=== PATIENT | female | born 1980 | race African-American/Black ===

== ENCOUNTER 2016-11-16 11:12 | Emergency (ER) | payer SELFPAY ==
--- NOTE | 2016-11-16 11:52 | ER Document Report ---
ED Medical Screen (RME) - General Chief Complaint: Cough Stated Complaint: FEVER,COUGH Notes: Patient complains of fever and cough since Saturday, think she has pneumonia. History of pneumonia in 1996. Does not know how high fever was. Feels nauseous , vomited twice yesterday and once today. Denies dysuria. I have greeted and performed a rapid initial assessment of this patient. A comprehensive ED assessment and evaluation of the patient, analysis of test results and completion of the medical decision making process will be conducted by additional ED providers. TRAVEL OUTSIDE OF THE [place] IN LAST 30 DAYS: No Past Medical History Past Surgical History: Reports: Hx Tubal Ligation - Immunizations Immunizations up to date: Yes Physical Exam - Vital signs Vitals: Temp Pulse Resp BP Pulse Ox 98.5 F 97 16 129/83 H 98 11/16/16 11:20 11/16/16 11:20 11/16/16 11:20 11/16/16 11:20 11/16/16 11:20 - Respiratory Notes: Lungs clear to auscultation, but deep breathing makes the patient start coughing. Course - Vital Signs Vital signs: Temp Pulse Resp BP Pulse Ox 98.5 F 97 16 129/83 H 98 11/16/16 11:20 11/16/16 11:20 11/16/16 11:20 11/16/16 11:20 11/16/16 11:20
[2016-11-16] MEDS ORDERED: ALBUTEROL SULFATE 0.083% NEB 2.5 MG/3 ML AMPUL NEB ONE (11:56)
[2016-11-16] MEDS ORDERED: LIDOCAINE 1% INJ-PF (10 MG/ML) 30 ML SDV INFIL ONE (14:07)
[2016-11-16] MEDS ORDERED: CEFTRIAXONE INJ 1000 MG VIAL IM ONE (14:07)
[2016-11-16] MEDS ORDERED: ALBUTEROL SULFATE HFA (90 MCG/PUFF) 8 GM MDI (1 MDI/ER DISP) IH ONE (14:23)
--- NOTE | 2016-11-16 14:38 | ER Document Report ---
ED General - General Chief Complaint: Cough Stated Complaint: FEVER,COUGH TRAVEL OUTSIDE OF THE [place] IN LAST 30 DAYS: No - HPI Patient complains to provider of: fever cough Notes: Patient coming in for evaluation of fever cough for the last few days. Patient states that patient may have pneumonia. Denies any recent antibiotics denies any recent travel. - Related Data Allergies/Adverse Reactions: No Known Allergies Allergy (Unverified 11/16/16 11:51) Past Medical History - Social History Smoking Status: Former Smoker Chew tobacco use (# tins/day): No Frequency of alcohol use: None Drug Abuse: None Family History: Reviewed & Not Pertinent Patient has suicidal ideation: No Patient has homicidal ideation: No Pulmonary Medical History: Reports: Hx Pneumonia Renal/ Medical History: Denies: Hx Peritoneal Dialysis Past Surgical History: Reports: Hx Tubal Ligation - Immunizations Immunizations up to date: Yes Review of Systems - Review of Systems Constitutional: Fever EENT: No symptoms reported Cardiovascular: No symptoms reported Respiratory: Cough, Short of breath Gastrointestinal: No symptoms reported Genitourinary: No symptoms reported Female Genitourinary: No symptoms reported Musculoskeletal: No symptoms reported Skin: No symptoms reported Hematologic/Lymphatic: No symptoms reported Neurological/Psychological: No symptoms reported -: Yes All other systems reviewed and negative Physical Exam - Vital signs Vitals: Temp Pulse Resp BP Pulse Ox 98.5 F 97 16 129/83 H 98 11/16/16 11:20 11/16/16 11:20 11/16/16 11:20 11/16/16 11:20 11/16/16 11:20 Interpretation: Normal - General General appearance: Appears well, Alert - HEENT Head: Normocephalic, Atraumatic Eyes: Normal Pupils: PERRL - Respiratory Respiratory status: No respiratory distress Chest status: Nontender Breath sounds: Rhonchi Chest palpation: Normal - Cardiovascular Rhythm: Regular Heart sounds: Normal auscultation Murmur: No - Abdominal Inspection: Normal Distension: No distension Bowel sounds: Normal Tenderness: Nontender Organomegaly: No organomegaly - Back Back: Normal, Nontender - Extremities General upper extremity: Normal inspection, Nontender, Normal color, Normal ROM , Normal temperature General lower extremity: Normal inspection, Nontender, Normal color, Normal ROM , Normal temperature, Normal weight bearing. No: Zaire's sign - Neurological Neuro grossly intact: Yes Cognition: Normal Orientation: AAOx4 Osbaldo Coma Scale Eye Opening: Spontaneous Osbaldo Coma Scale Verbal: Oriented Osbaldo Coma Scale Motor: Obeys Commands Osbaldo Coma Scale Total: 15 Speech: Normal Motor strength normal: LUE, RUE, LLE, RLE Sensory: Normal - Psychological Associated symptoms: Normal affect, Normal mood - Skin Skin Temperature: Warm Skin Moisture: Dry Skin Color: Normal Course - Re-evaluation Re-evalutation: 11/17/16 15:44 Patient's chest x-ray is concerning for pneumonia. Otherwise patient says no signs of hypoxia patient didn't tolerate orals this is a candidate for outpatient oral antibiotics treatment. Patient will be discharged home with a inhaler - Vital Signs Vital signs: Temp Pulse Resp BP Pulse Ox 98.3 F 84 20 128/76 H 97 11/16/16 14:59 11/16/16 14:59 11/16/16 14:59 11/16/16 14:59 11/16/16 14:59 Discharge - Discharge Clinical Impression: Pneumonia Qualifiers: Pneumonia type: due to unspecified organism Laterality: unspecified laterality Lung location: unspecified part of lung Qualified Code(s): J18.9 - Pneumonia, unspecified organism Condition: Good Disposition: HOME, SELF-CARE Instructions: Pneumonia ([facility]) Additional Instructions: Please take antibiotics as prescribed. Return to the ER if symptoms worsen. Please use the inhaler that we gave you here in ER 2 puffs every 4 hours for shortness of breath. Prescriptions: Doxycycline Hyclate 100 mg PO BID #20 tablet Ibuprofen [Motrin 600 Mg Tablet] 600 mg PO TID #30 tablet Forms: Return to Work
[2016-11-16 15:00] VITALS: BP 128/76
== END 2016-11-16 15:00 | disposition home or self-care (01) ==
LOC: ER 11:12
DX: J18.9 Pneumonia, unspecified organism (principal); R05 Cough; R50.9 Fever, unspecified; Z87.891 Personal history of nicotine dependence
CPT/HCPCS: 94640; 99283; 96372; 71020; J3490 ×2; J0696

== ENCOUNTER 2020-04-26 23:27 | Emergency (ER) | payer SELFPAY ==
[2020-04-26 23:34] VITALS: BP 139/87
[2020-04-27] MEDS ORDERED: HYDROCODONE/ACETAMINOPHEN 5-325 MG (6 TAB/ER DISP) PO PRN (00:07)
[2020-04-27] MEDS ORDERED: PENICILLIN V POTASSIUM 500 MG TABLET PO ONE (00:07)
--- NOTE | 2020-04-27 00:09 | ER Document Report ---
HPI - HPI Patient complains to provider of: Dull pain Time Seen by Provider: 04/27/20 00:06 Onset/Duration: Persistent Pain Level: 5 Context: Patient denies any dental pain to the right lower jaw for the past 4 days. P atient denies any fever. Patient reports mild facial swelling. Associated Symptoms: denies: Fever Exacerbated by: Denies Relieved by: Denies Similar symptoms previously: Yes Recently seen / treated by doctor: No - ROS ROS below otherwise negative: Yes Systems Reviewed and Negative: Yes All other systems reviewed and negative - CONSTITUTIONAL Constitutional: DENIES: Fever - EENT Notes: Dental pain - RESPIRATORY Respiratory: DENIES: Coughing - GASTROINTESTINAL Gastrointestinal: DENIES: Nausea, Patient vomiting - REPRODUCTIVE Reproductive: DENIES: : - DERM Skin Color: Normal Skin Problems: None Past Medical History - General Information source: Patient - Social History Smoking Status: Never Smoker Frequency of alcohol use: None Drug Abuse: None Occupation: None Lives with: Family Family History: Reviewed & Not Pertinent Pulmonary Medical History: Reports: Hx Pneumonia Renal/ Medical History: Denies: Hx Peritoneal Dialysis Skin Medical History: Reports Hx Psoriasis Past Surgical History: Reports: Hx Tubal Ligation - Immunizations Immunizations up to date: Yes Vertical Provider Document - CONSTITUTIONAL Agree With Documented VS: Yes Exam Limitations: No Limitations General Appearance: WD/WN, No Apparent Distress - INFECTION CONTROL TRAVEL OUTSIDE OF THE [place] IN LAST 30 DAYS: No - HEENT HEENT: Atraumatic, Normocephalic. negative: Pharyngeal Exudate Mouth Diagram: 1 - Dental decay, fracture, no gingival abscess, no trismus, no sublingual or submental swelling - NECK Neck: Supple, Lymphadenopathy-Right - Mild posterior cervical chain lymphadenopathy. negative: Lymphadenopathy-Left - RESPIRATORY Respiratory: Breath Sounds Normal, No Respiratory Distress - CARDIOVASCULAR Cardiovascular: Regular Rate, Regular Rhythm, No Murmur - MUSCULOSKELETAL/EXTREMETIES Musculoskeletal/Extremeties: MAEW - NEURO Level of Consciousness: Awake, Alert, Appropriate Motor/Sensory: No Motor Deficit - DERM Integumentary: Warm, Dry, No Rash Course - Vital Signs Vital signs: Temp Pulse Resp BP Pulse Ox 99.1 F 89 18 139/87 H 100 04/26/20 23:33 04/26/20 23:33 04/26/20 23:33 04/26/20 23:33 04/26/20 23:33 Discharge - Discharge Clinical Impression: Toothache Condition: Stable Disposition: HOME, SELF-CARE Instructions: Dentist, Oral Narcotic Medication (OM), Penicillin V K (OM), Toothache ([facility]) Additional Instructions: Return immediately for any new or worsening symptoms Followup with your primary care provider, call tomorrow to make a followup appointment Follow-up with a dental care provider, call tomorrow for an appointment Prescriptions: Naproxen [Naprosyn 250 Nmg Tablet] 1 tab PO BID #14 tablet Penicillin V Potassium [Penicillin Vk 500 mg Tablet] 500 mg PO BID #20 tablet Referrals: [facility],EMPLOYEE [Primary Care Provider] - Follow up as needed [facility] [Provider Group] - Follow up as needed
== END 2020-04-27 00:23 | disposition home or self-care (01) ==
LOC: ER 23:27
DX: K02.9 Dental caries, unspecified (principal); K08.89 Other specified disorders of teeth and supporting structures; R59.0 Localized enlarged lymph nodes
CPT/HCPCS: 99283